=== PATIENT | female | born 1995 | race American Indian/Alaskan Native ===

== ENCOUNTER 2021-11-11 10:57 | Emergency (ER) | payer SELFPAY ==
--- NOTE | 2021-11-11 13:13 | Emergency Department Report ---
ED ENT HPI - General Chief complaint: Sore Throat Stated complaint: SOB Time Seen by Provider: 11/11/21 11:49 Source: patient Mode of arrival: Ambulatory Limitations: No Limitations - History of Present Illness Initial comments: Patient is a 26-year-old female presents emergency with complaints of a sore throat that began 2 days ago. She has associated generalized body aches, rhinorrhea, congestion, cough. She denies any fever, vomiting, diarrhea, shortness of breath, chest pain. She reports that she did have a coworker with similar symptoms. No past medical history. No allergies to medications. - Related Data Previous Rx's Medication Instructions Recorded Last Taken Type Naproxen 375 mg PO BID PRN #14 tablet 11/11/21 Unknown Rx Nystas/Diphen/Xyl Visc/Mylanta 30 ml MM Q4H PRN #300 ml 11/11/21 Unknown Rx [Magic Mouthwash] Penicillin V Potassium 500 mg PO BID 10 Days #20 tablet 11/11/21 Unknown Rx Allergies Allergy/AdvReac Type Severity Reaction Status Date / Time No Known Allergies Allergy Verified 11/11/21 11:40 ED Dental HPI - General Chief complaint: Sore Throat Stated complaint: SOB Time Seen by Provider: 11/11/21 11:49 Source: patient Mode of arrival: Ambulatory Limitations: No Limitations - Related Data Previous Rx's Medication Instructions Recorded Last Taken Type Naproxen 375 mg PO BID PRN #14 tablet 11/11/21 Unknown Rx Nystas/Diphen/Xyl Visc/Mylanta 30 ml MM Q4H PRN #300 ml 11/11/21 Unknown Rx [Magic Mouthwash] Penicillin V Potassium 500 mg PO BID 10 Days #20 tablet 11/11/21 Unknown Rx Allergies Allergy/AdvReac Type Severity Reaction Status Date / Time No Known Allergies Allergy Verified 11/11/21 11:40 ED Review of Systems ROS: Stated complaint: SOB Other details as noted in HPI Comment: All other systems reviewed and negative ED Past Medical Hx - Past Medical History Previous Medical History?: Yes - Medications Home Medications: Home Medications Medication Instructions Recorded Confirmed Last Taken Type Naproxen 375 mg PO BID PRN #14 tablet 11/11/21 Unknown Rx Nystas/Diphen/Xyl Visc/Mylanta 30 ml MM Q4H PRN #300 ml 11/11/21 Unknown Rx [Magic Mouthwash] Penicillin V Potassium 500 mg PO BID 10 Days #20 tablet 11/11/21 Unknown Rx ED Physical Exam - General Limitations: No Limitations General appearance: alert, in no apparent distress - Head Head exam: Present: atraumatic, normocephalic - Eye Eye exam: Present: normal appearance - ENT ENT exam: Present: mucous membranes moist, TM's normal bilaterally, normal external ear exam, other (mild tonsillar hypertrophy, mild exudates, uvula is midline, no uvular edema or deviation, no trismus, no tongue elevation, no muffled voice ) - Respiratory Respiratory exam: Present: normal lung sounds bilaterally. Absent: respiratory distress, wheezes, rales, rhonchi, stridor, chest wall tenderness, accessory muscle use, decreased breath sounds, prolonged expiratory - Cardiovascular Cardiovascular Exam: Present: regular rate, normal rhythm, normal heart sounds. Absent: systolic murmur, diastolic murmur, rubs, gallop - Neurological Exam Neurological exam: Present: alert, oriented X3 - Psychiatric Psychiatric exam: Present: normal affect, normal mood - Skin Skin exam: Present: warm, dry, intact ED Course Vital Signs 11/11/21 11/11/21 11:38 13:30 Temperature 98.8 F Pulse Rate 90 88 Respiratory 16 14 Rate Blood Pressure 144/93 Blood Pressure 129/78 [Left] O2 Sat by Pulse 99 100 Oximetry ED Medical Decision Making - Medical Decision Making Patient is a 26-year-old female presents emergency with complaints of a sore throat that began 2 days ago. She has associated generalized body aches, rhinorrhea, congestion, cough. She denies any fever, vomiting, diarrhea, shortness of breath, chest pain. She reports that she did have a coworker with similar symptoms. No past medical history. No allergies to medications. Vitals are normal. On exam mild tonsillar hypertrophy, mild exudates, uvula is midline, no uvular edema or deviation, no trismus, no tongue elevation, no muffled voice. Rapid strep is negative. Given that patient is having some tonsillar hypertrophy and exudates, will cover patient for antibiotics to prevent peritonsillar abscess, no signs of peritonsillar abscess at this time. Advised patient Please take medication as prescribed. Increase your fluid intake. Gargle with warm salt water. Throw away your toothbrush after 24 hours of antibiotics. Do not drink after others or allow others drink after you. Follow-up with a primary care doctor. Return to emergency room any new or worse symptoms. Recommend outpatient COVID-19 testing and if positive will need to self quarantine for 10 days onset of symptoms. Critical care attestation.: If time is entered above; I have spent that time in minutes in the direct care of this critically ill patient, excluding procedure time. ED Disposition Clinical Impression: Tonsillitis URI (upper respiratory infection) Qualifiers: URI type: unspecified URI Qualified Code(s): J06.9 - Acute upper respiratory infection, unspecified Disposition: HOME / SELF CARE / HOMELESS Is pt being admited?: No Does the pt Need Aspirin: No Condition: Stable Instructions: Tonsillitis, [id number], Viral Respiratory Infection Additional Instructions: Please take medication as prescribed. Increase your fluid intake. Gargle with warm salt water. Throw away your toothbrush after 24 hours of antibiotics. Do not drink after others or allow others drink after you. Follow-up with a primary care doctor. Return to emergency room any new or worse symptoms. Recommend outpatient COVID-19 testing and if positive will need to self quarantine for 10 days onset of symptoms. Prescriptions: Nystas/Diphen/Xyl Visc/Mylanta [Magic Mouthwash] 30 ml MM Q4H PRN #300 ml PRN Reason: sore throat Naproxen 375 mg PO BID PRN #14 tablet PRN Reason: pain Penicillin V Potassium 500 mg PO BID 10 Days #20 tablet Referrals: NANCY EL MD [Primary Care Provider] - 2-3 Days MARYBETH CABELLO MD [Staff Physician] - 2-3 Days [facility] [Provider Group] - 2-3 Days Forms: Work/School Release Form(ED) Time of Disposition: 13:11 Print Language: [id number]
[2021-11-11 14:25] VITALS: BP 129/78
== END 2021-11-11 13:25 | disposition home or self-care (01) ==
LOC: ED 10:57
DX: J03.90 Acute tonsillitis, unspecified (principal); J06.9 Acute upper respiratory infection, unspecified
CPT/HCPCS: 87116; 87430; 99283

== ENCOUNTER 2022-03-07 21:55 | Emergency (ER) | payer SELFPAY ==
[2022-03-07 22:52] VITALS: BP 124/78
== END 2022-03-08 03:08 | disposition left against medical advice (07) ==
LOC: ED 21:55
DX: M25.531 Pain in right wrist (principal); Z53.21 Procedure and treatment not carried out due to patient leaving prior to being seen by health care provider